=== PATIENT | male | born 1960 | race Two or more races ===

== ENCOUNTER 2023-07-17 17:47 | Emergency (ER) | payer MEDICAID ==
[2023-07-17] MEDS: Sodium Phosphate,Monobasic/Sodium Phosphate,Dibasic Enema 133 ML Bottle RECTAL ONE (18:34)
== END 2023-07-17 19:45 | disposition home or self-care (01) ==
LOC: JP.ED 17:47
DX: K59.01 Slow transit constipation (principal); I10 Essential (primary) hypertension; Z88.8 Allergy status to other drugs, medicaments and biological substances; Z79.82 Long term (current) use of aspirin; Z79.899 Other long term (current) drug therapy
CPT/HCPCS: 99283; A9270